=== PATIENT | female | born 1995 | race Caucasian/White ===

== ENCOUNTER 2017-08-29 20:31 | Inpatient (IN) | payer OTHER ==
[~2017-08-29] VITALS: Ht 162.6 cm; Wt 77.3 kg
[2017-08-29] MEDS ORDERED: LACTATED RINGER'S 1000ML 1,000 ML IV PRN (21:18)
[2017-08-29] MEDS ORDERED: PATIENT'S ALLERGY INFO NEEDS ENTERED SCH (21:30)
[2017-08-29] MEDS ORDERED: EpHEDrine SULFATE INJ 50 MG/ML AMP ONE (21:31)
[2017-08-29] MEDS ORDERED: BUPIVACAINE 0.25% 30 ML VIAL ONE (21:31)
[2017-08-29] MEDS ORDERED: FENTANYL 2MCG/ML ROPIV 1.25MG/ML 100ML BAG EPI ONE (21:32)
[2017-08-29] MEDS ORDERED: FENTANYL CITRATE INJ 50 MCG/1 ML 2 ML VIAL ONE (21:32)
[2017-08-29 21:42] VITALS: Ht 162.6 cm; Wt 77.3 kg
[2017-08-29] MEDS ORDERED: PRENTAB26 PO (21:45)
[2017-08-29 21:49] LABS: HEMATOCRIT 37.6 % (37-47); MEAN CELL VOLUME 80.9 fL (80-100); MEAN CORPUSCULAR HEMOGLOBIN 27.7 pg (25-34); MEAN CORPUSCULAR HGB CONC 34.3 g/dl (32-36); MEAN PLATELET VOLUME 11.1 fL (7.4-10.4); PLATELET COUNT 183 K/uL (130-400); RED BLOOD COUNT 4.65 M/uL (4.2-5.4); WHITE BLOOD COUNT 13.66 K/uL (4.8-10.8)
[2017-08-29] MEDS ORDERED: NALOXONE HCL INJ 1 MG in SODIUM CHLORIDE 0.9% 1000ML 1,000 ML IV PRN (22:38)
[2017-08-29] MEDS ORDERED: LACTATED RINGER'S 1000ML 500 ML IV PRN ×2 (22:38→23:04)
[2017-08-29] MEDS ORDERED: ONDANSETRON INJ 2 MG/ML 2 ML VIAL IV PRN (22:45)
[2017-08-29] MEDS ORDERED: NALBUPHINE HCL INJ 10 MG/ML AMP IV PRN (22:45)
[2017-08-29] MEDS ORDERED: FENTANYL 2MCG/ML ROPIV 1.25MG/ML 100ML BAG EPI PRN (22:45)
[2017-08-29] MEDS ORDERED: PROMETHAZINE HCL INJ 6.25 MG in SODIUM CHLORIDE 0.9% 50ML 50 ML IV PRN (22:45)
[2017-08-29] MEDS ORDERED: DiphenhydrAMINE HCL 50 MG/ML VIAL IV PRN (22:45)
[2017-08-29] MEDS ORDERED: NALOXONE HCL INJ 0.4 MG/1 ML VIAL/CARP IV PRN (22:45)
[2017-08-29] MEDS ORDERED: EpHEDrine SULFATE INJ 50 MG/ML AMP IV PRN (22:45)
[2017-08-29] MEDS: LACTATED RINGER'S 1000ML 1,000 ML IV SCH (22:52)
[2017-08-29] MEDS ORDERED: OXYTOCIN 30 UNITS/500ML NSS IV PRN (23:15)
[2017-08-30] VITALS (15 sets, daily range): BP systolic 108–121; BP diastolic 59–70; PULSE 86–100; TEMP 36.9–37.4; O2SAT 91–98
[2017-08-30] MEDS ORDERED: TERBUTALINE SULFATE 1 MG/ML VIAL ONE (00:45)
[2017-08-30] MEDS: LACTATED RINGER'S 1000ML 1,000 ML IV SCH (00:50)
[2017-08-30] MEDS ORDERED: LACTATED RINGER'S 1000ML 1,000 ML IV SCH ×2 (05:36→07:18)
[2017-08-30] MEDS ORDERED: CEFAZOLIN IV 2,000 MG in DEXTROSE 5% 50ML 50 ML IV STA (05:42)
[2017-08-30] MEDS ORDERED: CITRIC ACID/SODIUM CITRATE 15 ML UDC PO ONE (05:45)
[2017-08-30] MEDS ORDERED: KETOROLAC TROMETHAMINE 30 MG/ML VIAL ONE (06:22)
[2017-08-30] MEDS ORDERED: OXYTOCIN INJ 10 UNITS/ML VIAL ONE (06:22)
[2017-08-30] MEDS ORDERED: FENTANYL CITRATE INJ 50 MCG/1 ML 2 ML VIAL ONE (06:22)
[2017-08-30] MEDS ORDERED: MoRPHine SULFATE PF 1 MG/ML 10 ML AMP/VIAL ONE (06:22)
[2017-08-30] MEDS ORDERED: MoRPHine SULFATE PF 1 MG/ML 10 ML AMP/VIAL EPI PRN (07:15)
[2017-08-30] MEDS ORDERED: CONTINUE MEDICATION ONE (07:15)
[2017-08-30] MEDS ORDERED: MEPERIDINE HCL 25 MG/ML CARP IV PRN (07:15)
[2017-08-30] MEDS ORDERED: MoRPHine SULFATE 2 MG/ML CARP IV PRN (07:15)
[2017-08-30] MEDS ORDERED: NO NARCOTICS OR SEDATIVES SCH (07:15)
[2017-08-30] MEDS ORDERED: OXYTOCIN INJ 20 UNITS in D5W AND LACTATED RINGERS 1,000 ML IV SCH (07:18)
--- NOTE | 2017-08-30 07:23 | [facility] Post Operative Brief Note ---
Immediate Operative Summary Operative Date Aug 30, 2017. Pre-Operative Diagnosis Category two strip without improving over time; failure to progress Post-Operative Diagnosis Category two strip without improving over time; failure to progress Procedure(s) Performed Primary Cesearean Section for delivery of a live male child at [address] Branham Branch Chief Surgeon(s) Toyin Garcia rn Estimated Blood Loss 600cc Findings Viable male infant, cephalic presentation Specimens Placenta Cord Blood Cord Gases Anesthesia Epidural Complication(s) None Disposition L&D
[2017-08-30] MEDS ORDERED: SUPERCREAM 0.870 % 15GM JAR EXT PRN (07:30)
[2017-08-30] MEDS ORDERED: LANOLIN OINT EXT PRN ×2 (07:30)
[2017-08-30] MEDS ORDERED: MEASLES, MUMPS & RUBELLA VIRUS VIAL SQ. ONE (07:30)
[2017-08-30] MEDS ORDERED: SENNA 8.6 MG TAB PO PRN (07:30)
[2017-08-30] MEDS ORDERED: HYDROCORTISONE ACETATE 25 MG SUPP PR PRN (07:30)
[2017-08-30] MEDS ORDERED: DIPHTHERIA/TETANUS/PERTUSSIS 0.5 ML SYR/VIAL IM. ONE (07:30)
[2017-08-30] MEDS ORDERED: BENZOCAINE 20% AER SPR 82.5 GM CAN EXT PRN (07:30)
[2017-08-30] MEDS ORDERED: MAGNESIUM HYDROXIDE SUSP 30 ML UDC PO PRN (07:30)
--- NOTE | 2017-08-30 07:35 | Anesthesiology Progress Note ---
Anesthesia Post Op Note Date & Time Aug 30, 2017 at 07:35 Vital Signs Pain Intensity: 0.0 Notes Mental Status: alert / awake / arousable, participated in evaluation Pt Amnestic to Procedure: Yes Nausea / Vomiting: adequately controlled Pain: adequately controlled Airway Patency, RR, SpO2: stable & adequate BP & HR: stable & adequate Hydration State: stable & adequate Neuraxial Anesthesia: was administered, sensory block is resolving Anesthetic Complications: no major complications apparent
--- NOTE | 2017-08-30 07:48 | OPERATIVE REPORT ---
DATE OF OPERATION: 08/30/2017 PREOPERATIVE DIAGNOSIS: The patient is a 22-year-old at 39 weeks and 1 day of gestation, presented in active labor, meconium stained amniotic fluid and failure to progress despite adequate uterine contractions, category 2 strip with deep recurrent variable decelerations. POSTOPERATIVE DIAGNOSIS: Same. PROCEDURE: Primary low transverse with Pfannenstiel skin incision. SURGEON: José Lai MD BUSGIRL: Toyin Garcia, Registered Nurse. ESTIMATED BLOOD LOSS: 600. FLUIDS: 1200 mL lactated ringer. DRAINS: Jaffe catheter drained 700 mL of urine. SPECIMENS: Placenta, cord blood and gases. ANESTHESIA: Epidural, Dr. Pressley. COMPLICATIONS: None. FINDINGS: Baby was a viable male delivered at 6:31 a.m. Apgars 8/9. Weight is 3115 grams, was in cephalic presentation Maternal findings, normal uterus, fallopian tubes and ovaries. DESCRIPTION OF PROCEDURE: The patient was taken to the operating room where epidural anesthesia was found to be adequate. She was placed in dorsal supine position with a leftward tilt. She was prepared and draped in usual sterile fashion. A Pfannenstiel skin incision was made, carried to the underlying layer of fascia with the Bovie. Fascia was incised in the midline and incision extended laterally with the help of Torres scissors. Lower aspect of the fascial incision was grasped with 2 [place] clamps, elevated, underlying rectus muscles were dissected off sharply with Torres scissors and then upper aspect of the fascial incision was then grasped with 2 [place] clamps, elevated, underlying rectus muscles were dissected off sharply with Torres scissors and the rectus muscles were in midline and peritoneum was entered bluntly with fingers. Peritoneal incision was the extended superiorly and inferiorly with good visualization of the bladder. Bladder blade was inserted. The vesicouterine peritoneum was identified, grasped with pickups, entered sharply with Metzenbaum scissors. Vesicouterine peritoneum was created digitally and vesicouterine flap was created digitally and bladder blade was reinserted. Lower uterine segment was incised in transverse fashion. Incision was extended laterally with the help of fingers and the baby's head was brought to the incision and delivered without difficulty. Shoulders were delivered with minimal traction and the baby was handed off to the gunstock spray unit adjuster, Dr. Silveira who was scrubbed in the case. She suctioned the mouth and nose. Cord was clamped x2 and cut. It was a 3-vessel cord. Cord blood and gases were obtained and placenta was delivered manually as intact and complete. Uterus was cleared of all clots and debris. Uterine incision was repaired with 0 Vicryl in a running locked fashion. A second imbricating layer was placed with 0 Vicryl in a running locked fashion and excellent hemostasis was achieved. Then the vesicouterine peritoneum was reapproximated with 3-0 Vicryl in a running fashion. The pelvis was irrigated with warm normal saline and suctioned. Both ovaries and fallopian tubes were checked to be normal and then incision was checked to be hemostatic again. Parietal peritoneum was reapproximated with 3-0 Vicryl in a running locked fashion and the rectus muscles were reapproximated with 3-0 Vicryl in a running fashion. Rectus fascia was reapproximated with 0 Vicryl in a running fashion and subcuticular fat tissue was brought together with 3-0 Vicryl within a running fashion and the skin was closed with 4-0 Monocryl in a subcuticular fashion and the incision was covered with Steri-Strips and pressure dressing. The patient and baby tolerated the procedure well. Sponge, lap and needle counts were correct x3. The patient was given 2 grams of cefazolin before surgery. She was taken to recovery room in stable condition. I attest to the content of the Intraoperative Record and any orders documented therein. Any exceptions are noted below. RAMIN
[2017-08-30] MEDS: OXYTOCIN INJ 20 UNITS in LACTATED RINGER'S 1000ML 1,000 ML IV SCH ×2 (09:16→17:35)
[2017-08-30] MEDS: DOCUSATE SODIUM 100 MG CAP PO SCH ×2 (10:25→19:56)
[2017-08-30] MEDS: PRENATAL VITAMIN TAB PO SCH (10:25)
[2017-08-30] MEDS: FERROUS SULFATE 325 MG TAB PO SCH (10:25)
[2017-08-30] MEDS: SIMETHICONE 80 MG CHEW PO SCH ×4 (12:00→19:56)
[2017-08-30] MEDS ORDERED: NURSING VERBAL MED ORDER ONE (13:15)
[2017-08-30] MEDS: KETOROLAC TROMETHAMINE 30 MG/ML VIAL IV. PRN (17:35)
[2017-08-31] VITALS (9 sets, daily range): BP systolic 118–120; BP diastolic 70–75; PULSE 89–95; TEMP 36.9–37.2; O2SAT 93–98
[2017-08-31] MEDS: OXYTOCIN INJ 20 UNITS in LACTATED RINGER'S 1000ML 1,000 ML IV SCH (01:15)
[2017-08-31] MEDS: KETOROLAC TROMETHAMINE 30 MG/ML VIAL IV. PRN (06:06)
[2017-08-31] MEDS ORDERED: DiphenhydrAMINE HCL 50 MG/ML VIAL IV PRN (06:30)
[2017-08-31] MEDS ORDERED: ONDANSETRON INJ 2 MG/ML 2 ML VIAL IV PRN (06:30)
[2017-08-31] MEDS ORDERED: IBUPROFEN 600 MG TAB PO PRN (06:30)
[2017-08-31] MEDS ORDERED: OXYCODONE/ACETAMINOPHEN 5-325 TAB PO PRN ×2 (06:30)
[2017-08-31] MEDS ORDERED: DC INTRASPINAL MORPHINE SCH (06:30)
[2017-08-31] MEDS ORDERED: MEPERIDINE HCL 50 MG/ML CARP IV PRN ×2 (06:30)
[2017-08-31] MEDS ORDERED: PROMETHAZINE HCL INJ 25 MG in SODIUM CHLORIDE 0.9% 50ML 50 ML IV PRN (06:30)
[2017-08-31] MEDS ORDERED: KETOROLAC TROMETHAMINE 30 MG/ML VIAL IV. PRN (06:30)
[2017-08-31 08:14] LABS: HEMATOCRIT 29.5 % (37-47); MEAN CELL VOLUME 81.5 fL (80-100); MEAN CORPUSCULAR HEMOGLOBIN 26.8 pg (25-34); MEAN CORPUSCULAR HGB CONC 32.9 g/dl (32-36); MEAN PLATELET VOLUME 10.6 fL (7.4-10.4); PLATELET COUNT 160 K/uL (130-400); RED BLOOD COUNT 3.62 M/uL (4.2-5.4); WHITE BLOOD COUNT 13.48 K/uL (4.8-10.8)
[2017-08-31] MEDS: FERROUS SULFATE 325 MG TAB PO SCH (08:17)
[2017-08-31] MEDS: PRENATAL VITAMIN TAB PO SCH (08:17)
[2017-08-31] MEDS: SIMETHICONE 80 MG CHEW PO SCH ×4 (08:17→19:52)
[2017-08-31] MEDS: DOCUSATE SODIUM 100 MG CAP PO SCH ×2 (08:17→19:52)
[2017-08-31 08:47] LABS: BASO % 0.1 %; BASO ABS # 0.02 K/uL (0-0.2); COMPLETE YES; EOS % 0.2 %; IG% 0.2 %; LYMPH % 12.3 %; LYMPH ABS # 1.66 K/uL (1.2-3.4); MONO % 6.8 %; NEUT % 80.4 %
--- NOTE | 2017-08-31 09:30 | Surgery Progress Note ---
Surgery Progress Note Date of Service Aug 31, 2017. Subjective Post OP Day: 2 + feeling well, + ambulating Objective Vital Signs: Date Time Temp Pulse Resp B/P (MAP) Pulse Ox O2 Delivery O2 Flow Rate FiO2 08/31/17 05:00 16 95 08/31/17 04:00 16 97 08/31/17 03:25 37.2 89 16 118/70 (86) 95 Room Air 08/31/17 03:00 16 95 08/31/17 02:00 16 95 08/31/17 01:00 16 93 08/31/17 00:00 16 94 08/30/17 23:10 Room Air 08/30/17 23:10 36.9 94 16 110/59 (76) 94 Room Air 08/30/17 23:00 16 96 08/30/17 22:00 16 97 08/30/17 20:55 37.0 88 18 115/69 (84) 98 Room Air 08/30/17 20:55 Room Air 08/30/17 20:55 18 98 08/30/17 19:05 18 98 08/30/17 18:00 18 96 08/30/17 17:00 18 93 08/30/17 16:00 18 94 08/30/17 15:00 37.1 86 16 121/67 (85) 95 Room Air 08/30/17 15:00 95 Room Air 08/30/17 15:00 16 95 08/30/17 14:00 18 91 08/30/17 13:30 18 93 08/30/17 12:30 18 92 08/30/17 12:30 92 Room Air 08/30/17 12:30 37.2 100 18 108/70 (83) 92 Room Air 08/30/17 11:30 16 92 08/30/17 11:25 37.3 97 16 112/60 (77) 92 Room Air 08/30/17 10:25 16 94 08/30/17 10:25 37.4 97 16 120/65 (83) 94 Room Air 08/30/17 10:25 94 Room Air General Appearance: no apparent distress Abdomen: non tender, non distended, soft, no organomegaly Incision(s): clean, dry, intact Laboratory Results: Results Past 24 Hours Test 08/31/17 06:54 Range/Units White Blood Count 13.48 4.8-10.8 K/uL Red Blood Count 3.62 4.2-5.4 M/uL Hemoglobin 9.7 12.0-16.0 g/dL Hematocrit 29.5 37-47 % Mean Corpuscular Volume 81.5 80-100 fL Mean Corpuscular Hemoglobin 26.8 25-34 pg Mean Corpuscular Hemoglobin Concent 32.9 32-36 g/dl Platelet Count 160 130-400 K/uL Mean Platelet Volume 10.6 7.4-10.4 fL Neutrophils (%) (Auto) 80.4 % Lymphocytes (%) (Auto) 12.3 % Monocytes (%) (Auto) 6.8 % Eosinophils (%) (Auto) 0.2 % Basophils (%) (Auto) 0.1 % Neutrophils # (Auto) 10.82 1.4-6.5 K/uL Lymphocytes # (Auto) 1.66 1.2-3.4 K/uL Monocytes # (Auto) 0.92 0.11-0.59 K/uL Eosinophils # (Auto) 0.03 0-0.5 K/uL Basophils # (Auto) 0.02 0-0.2 K/uL RDW Standard Deviation 45.2 36.4-46.3 fL RDW Coefficient of Variation 15.3 11.5-14.5 % Immature Granulocyte % (Auto) 0.2 % Immature Granulocyte # (Auto) 0.03 0.00-0.02 K/uL Assessment & Plan POD#2 regular diet
[2017-08-31] MEDS ORDERED: BISACODYL 5 MG TABEC PO ONE (22:00)
[2017-09-01 00:20] VITALS: BP 124/82; PULSE 84; TEMP 36.8
[2017-09-01 07:30] VITALS: BP 129/77; PULSE 78; TEMP 37
[2017-09-01] MEDS ORDERED: BISACODYL 10 MG SUPP PR PRN (07:30)
[2017-09-01 07:56] VITALS: BP 129/79; PULSE 78; TEMP 37; O2SAT 96
[2017-09-01 08:13] LABS: HEMATOCRIT 29.4 % (37-47)
[2017-09-01] MEDS: DOCUSATE SODIUM 100 MG CAP PO SCH (08:13)
[2017-09-01] MEDS: FERROUS SULFATE 325 MG TAB PO SCH (08:13)
[2017-09-01] MEDS: SIMETHICONE 80 MG CHEW PO SCH (08:13)
[2017-09-01] MEDS: PRENATAL VITAMIN TAB PO SCH (08:13)
[2017-09-01] MEDS ORDERED: OXYC-57 PO (08:34)
[2017-09-01] MEDS ORDERED: MTR600X PO (08:34)
--- NOTE | 2017-09-01 08:36 | Discharge Instructions ---
Discharge Instructions Date of Service Sep 01, 2017. Admission Reason for Admission: Amniotic Fluid Leaking, Uterine Contractions At Discharge Discharge Diagnosis / Problem: Primary section Discharge Goals Goal(s): Routine recovery after Activity Recommendations Activity Limitations: per Instructions/Follow-up section . Instructions / Follow-Up Instructions / Follow-Up ACTIVITY RECOMMENDATIONS: * Gradual return to full activity over the next 2-3 weeks. * No lifting - nothing heavier than baby over the next 2-3 weeks. * Do not engage in vigorous exercise, sexual activity or sports until cleared by your physician. * Do not drive or operate any motorized equipment until cleared by your physician. * You may shower/bathe daily. BREAST CARE: If you are not breast feeding: * Wear a supportive bra 24 hours a day for one to two weeks. * Avoid stimulating your breasts and nipples as much as possible during the first few weeks after delivery. * When taking a shower, have the warm water hit your back, not breasts. * When your breasts feel full, apply ice packs. Usually three to four times a day helps ease the discomfort. * Take a mild pain medication (Tylenol/Motrin) when you are uncomfortable. If breast feeding: * Use breast milk to lubricate nipples. Lansinoh cream may be used for sore nipples. You do not need to remove cream prior to breast feeding. If using a different brand of cream, check the label for directions regarding removal of cream prior to nursing. * Wear a supportive bra. * If having problems with breasts or breast feeding, call a sr risk management consultant or your health care provider. OVER THE COUNTER MEDICATION: * For discomfort or pain, you may use Acetaminophen (Tylenol), Ibuprofen (Advil ), or Naproxen (Aleve) following the package directions. * For constipation you may use Colace following the package directions. SPECIAL CARE INSTRUCTIONS: When you are discharged from the hospital, it is important for you to follow the instructions listed below: * During the first week at home, you should be able to care for yourself and your baby. In addition, the usual light household activities are encouraged. * Limit your activities to the way you feel. Do not try to clean the house or move furniture. Be sensible. * If you actively engage in sports and have done so up until the time of your delivery, you may resume these activities as soon as you feel able. This may take up to one month or even longer. Use good judgment. * Continue to take your vitamins for at least six weeks after the of your baby. * Your diet need not be limited unless you were on a special diet before your delivery. Breast-feeding mothers need around 2500 calories per day and at least 64-80 ounces of fluid per day (8 to 10 glasses). * You should eat foods from the four major food groups. Crash diets or fad diets are to be avoided. Eating lean meats, fresh fruits and vegetables, low-fat dairy products, high fiber foods and a regular exercise program, will help you get back to your pre- weight without putting your health at risk. * Constipation is sometimes a problem after delivery. Take a mild laxative as needed. If breast feeding, Milk of Magnesia is acceptable to use. You may use a suppository or Fleets enema if no episiotomy. * A daily shower or tub bath is suggested. Be sure to thoroughly and gently dry the perineum. * A bloody vaginal discharge will usually continue until around four weeks post . A small amount of bleeding may continue for as long as six weeks. Vaginal discharge changes from the bright red bleeding after delivery to pink then brownish and finally yellowish-pink before becoming white and disappearing. * Bleeding may increase with activity. Your first period may come in 4-8 weeks. If you are breast feeding, your period may be delayed even longer. * Imbery (sex) can begin whenever both you and your partner feel comfortable and do not have any form of genital infection. It is recommended that you wait at least six weeks for internal and external healing to occur. If you have questions, please talk to your health care practitioner. A condom should be used to prevent infection and . * Foreplay, gentle intercourse and lubrication is very important the first several times to prevent pain. A water-based lubricant such as K-Y jelly or Astroglide may be used. * Tampons and/or Douching should be avoided until after six weeks check-up. * If you have RH negative blood and your baby is RH positive, you will receive RHOGAM by injection prior to discharge. The nurse will give you a card to keep with you that has the date and place that you received RHOGAM after delivery. * During your care, you had a Rubella screen done to check for the presence of rubella antibodies in your blood. If your test was negative, you will receive a Rubella vaccine prior to discharge. This vaccine may cause a fever, soreness at the injection site and flu-like symptoms. If these symptoms persist, notify your health care practitioner. is not advised for three months after a Rubella vaccine. * Verbalizes understanding of car seat law as reviewed with patient nursing. * Car Seat hand-out given and reviewed with patient by nursing. * Shaken baby information reviewed with patient by nursing. Call you doctor if: * Heavy bleeding (saturating several pads an hour) or passing clots the size of your fist. * A fever >101 degrees F (38.3 degrees C) on two occasions four hours apart and /or chills. * Unusual pain in the pelvic or vaginal areas. Pain should improve each day . * Call the doctor for any increased redness, drainage or swelling around the incision and any pain unrelieved by prescribed pain medication. * Any signs or symptoms of phlebitis (possible blood clots forming in the veins ): leg pain, warm, red or swollen area on leg. * "Baby Blues" lasting longer than two weeks. If you have any questions or concerns, call your health care practitioner at . FOLLOW-UP VISIT: * Incision check (staple removal) in 1 week. Please call doctor's office at to set up appointment. * Please call the office at to schedule a 6 week examination. It is important you keep this appointment. * It is important for you to make arrangements for either yearly or twice yearly check-ups thereafter. Current Hospital Diet Patient's current hospital diet: Regular OB Diet Discharge Diet Recommended Diet: Regular OB Diet Procedures Procedures Performed: Primary Cesearean Section for delivery of a live male child at 0631 Pending Studies Studies pending at discharge: no Medical Emergencies . Who to Call and When: Medical Emergencies: If at any time you feel your situation is an emergency, please call 911 immediately. . Non-Emergent Contact Non-Emergency issues call your: Primary Care Provider, Tape Coater . . "Provider Documentation" section prepared by Chuck Wilkins. . VTE Core Measure Inpt VTE Proph given/why not?: Treatment not indicated [place] Drug Monitoring Program Search Results: patient reviewed within database, no issues identified
--- NOTE | 2017-09-01 08:38 | OB/GYN Progress Note ---
[facility] Progress Note Date of Service Sep 01, 2017. Subjective conversation w/ patient, physical exam Ambulation: ambulating normally Voiding: no voiding problems Passing Gas: Yes Diet Tolerance: Regular Diet Lochia: Small Pain: 11/30 Notes: Doing well, no concerns. Pain well controlled. Tolerating regular diet, +flatus , -BM. Ambulating without difficulty. Would like to go home today. Objective Vital Signs Date Time Temp Pulse Resp B/P (MAP) Pulse Ox O2 Delivery O2 Flow Rate FiO2 09/01/17 07:56 37.0 78 18 129/79 (96) 96 Room Air 09/01/17 00:20 Room Air 09/01/17 00:20 36.8 84 18 124/82 (96) 08/31/17 15:30 37.2 95 20 120/75 (90) 98 Room Air 08/31/17 15:30 Room Air Physical Exam General Appearance: WELL-APPEARING Respiratory/Chest: chest non-tender, lungs clear Cardiovascular: regular rate, rhythm Abdomen: normal bowel sounds, soft Fundus: Firm Incision Description: Clean, Dry & Intact Extremities: normal range of motion, non-tender, no calf tenderness Laboratory Results Last 24 Hours Test 09/01/17 07:58 Hemoglobin 9.3 g/dL Hematocrit 29.4 % Assessment and Plan Post-Op Day Number: 2 Continue Routine Care: -D/C home today -F/U in 1 week.
[2017-09-01 12:21] VITALS: BP_DIAS 79; PULSE 78; TEMP 37
== END 2017-09-01 12:35 | disposition home or self-care (01) | DRG 766 ==
LOC: C.LD 20:31 → C.OPB 20:31 → C.LD 21:20 → C.OBG 08-30 10:23
PROVIDERS: ADMIT Obstetrics & Gynecology; ATTEND Obstetrics & Gynecology
PROC: 10D00Z1 Extraction of Products of Conception, Low, Open Approach (ICD-10-PCS; principal; 2017-08-30 05:46)
DX: O62.1 Secondary uterine inertia (principal); O76 Abnormality in fetal heart rate and rhythm complicating labor and delivery; O24.420 Gestational diabetes mellitus in childbirth, diet controlled; Z3A.39 39 weeks gestation of pregnancy; Z37.0 Single live birth

== ENCOUNTER 2019-12-18 05:14 | Inpatient (IN) ==
--- NOTE | 2019-12-05 12:29 | Anesthesiology Consultation ---
Date of Service December 05, 2019 Assessment & Plan (1) Encounter for pre-operative examination: CHECK BSG AM DOS Chart Review Chart Review: Acceptable Risk for Surgery and Patient seen in Pre Admission Testing Teaching & Discussion Instructed NPO after midnight before surgery, except medications with 15 cc of water. Medication instructions provided according to the PAT guidelines. History Surgery Operation Date: 12/18/19 07:30 Proposed Procedures p Section in LD - Logan Rothman MD Height/Weight Height: 5 ft 4 in Weight: 79.1 kg Allergies Allergy/AdvReac Type Severity Reaction Status Date / Time No Known Allergies Allergy Verified 11/28/19 08:29 Medications Home Medications Medication Instructions Recorded Confirmed Last Taken PNV cmb#95-ferrous fumarate-FA 1 tab PO QAM 11/28/19 11/28/19 Unknown [] Past Medical History Medical History Gestational diabetes Diet controlled Exercise / Class Metabolic Activity II 4-5 Yardwork/Stairs/Walk up hill Past Surgical History Surgical History Hx of section Done for nonreassuring FHTs Past Anesthesia History No Hx of Anesthesia Complications History of PONV No Hx of PONV and No Hx of Motion Sickness Social History Smoking Status: Never smoker Do You Dip or Chew Tobacco: No Hx Alcohol Use: No Hx Substance Use: No Review of Systems Pt denies any recent chest pain, shortness of breath, palpitations, cough, fever or URI. Physical Exam Vital Signs BP: 110/73 P: 116 (pt asymptomatic) SPO2: 97% RA T: 98.0 F R: 12 ENMT Mouth: no chipped teeth and no loose teeth Thyromental Distance: > or= 3.5 Finger Breadths (3.5) Mallampati Class: III Neck normal visual inspection; neck extension not limited Respiratory normal respiratory effort Auscultation: lungs clear to auscultation bilaterally Cardiovascular Rate/Rhythm: regular rhythm and + tachycardic Heart Sounds: no murmur Testing Laboratory Results 12/05/19 12:20 12/05/19 12:20 Blood Type A Negative 12/05/19 12:20 Antibody Screen POSITIVE A 12/05/19 12:20
[2019-12-05 12:59] LABS: Basophils # (auto) 0.01 K/uL (0-0.2); Basophils % (auto) 0.1 %; Eosinophils # (auto) 0.17 K/uL (0-0.5); Hematocrit (blood only) 34.8 % (37-47); Hemoglobin 11.3 g/dL (12.0-16.0); Immature Granulocytes # (auto) 0.05 K/uL (0.00-0.02); Immature Granulocytes % (auto) 0.6 %; Lymphocytes # (auto) 1.35 K/uL (1.2-3.4); Lymphocytes % (auto) 15.5 %; Mean Corpuscular Hemoglobin 26.5 pg (25-34); Mean Corpuscular Hgb Conc 32.5 g/dL (32-36); Mean Corpuscular Volume 81.5 fL (80-100); Mean Platelet Volume 10.8 fL (7.4-10.4); Monocytes # (auto) 0.51 K/uL (0.11-0.59); Monocytes % (auto) 5.9 %; Neutrophils % (auto) 75.9 %; Platelet Count 186 K/uL (130-400); RDW Coefficient of Variation 15.2 % (11.5-14.5); RDW Standard Deviation 44.5 fL (36.4-46.3); Red Blood Count 4.27 M/uL (4.2-5.4); White Blood Count 8.69 K/uL (4.8-10.8)
[2019-12-05 13:17] LABS: BUN Creatinine Ratio 17.6 (10-20); Calcium 8.7 mg/dl (8.5-10.1); Creatinine Clr Calc Pharmacy 142.4 ml/min; Est GFR (African American) 146.3; Est GFR (Non-African American) 126.2; Potassium 3.8 mmol/L (3.5-5.1)
[~2019-12-18 05:14] MED LIST: KETOROLAC 30 MG/ML VIAL IV PRN
[2019-12-18] MEDS ORDERED: LACTATED RINGER'S 1,000 ML IV SCH ×2 (05:30→10:45)
[2019-12-18 05:46] LABS: Basophils # (auto) 0.03 K/uL (0-0.2); Basophils % (auto) 0.3 %; Eosinophils # (auto) 0.18 K/uL (0-0.5); Eosinophils % (auto) 1.9 %; Hematocrit (blood only) 38.2 % (37-47); Hemoglobin 12.5 g/dL (12.0-16.0); Immature Granulocytes # (auto) 0.04 K/uL (0.00-0.02); Immature Granulocytes % (auto) 0.4 %; Lymphocytes # (auto) 1.71 K/uL (1.2-3.4); Lymphocytes % (auto) 17.6 %; Mean Corpuscular Hemoglobin 26.6 pg (25-34); Mean Corpuscular Volume 81.3 fL (80-100); Mean Platelet Volume 10.8 fL (7.4-10.4); Monocytes # (auto) 0.71 K/uL (0.11-0.59); Monocytes % (auto) 7.3 %; Neutrophils # (auto) 7.03 K/uL (1.4-6.5); Neutrophils % (auto) 72.5 %; Platelet Count 169 K/uL (130-400); RDW Coefficient of Variation 15.9 % (11.5-14.5); RDW Standard Deviation 46.6 fL (36.4-46.3)
[2019-12-18 05:49] LABS: Mean Corpuscular Hgb Conc 32.7 g/dL (32-36)
[2019-12-18] MEDS ORDERED: CITRIC ACID/SODIUM CITRATE 15 ML UDC PO SCH (06:00)
[2019-12-18] MEDS ORDERED: CEFAZOLIN 2000MG 2,000 MG/15 ML SYR IV SCH (06:00)
[2019-12-18] MEDS ORDERED: OXYTOCIN 10 UNITS/ML VIAL ONE (07:53)
[2019-12-18] MEDS ORDERED: MoRPHine SULFATE PF 1 MG/ML 10 ML AMP/VIAL ONE (07:55)
[2019-12-18] MEDS ORDERED: fentaNYL citrate 100 MCG/2 ML VIAL ONE (07:55)
--- NOTE | 2019-12-18 07:56 | History & Physical Report ---
Date of Service December 18, 2019 Assessment & Plan (1) Term , repeat: Repeat section Present on Admission?: Yes History of Present Illness Primary Care Provider: NO PCP Allergies Allergy/AdvReac Type Severity Reaction Status Date / Time No Known Allergies Allergy Verified 12/18/19 05:39 Home Medications Home Medications Medication Instructions Recorded Confirmed Type PNV cmb#95-ferrous fumarate-FA 1 tab PO QAM 11/28/19 12/18/19 History [] Past Med/Surg History Medical History Gestational diabetes Diet controlled Surgical History Hx of section Done for nonreassuring FHTs, 08/2017 [place] teeth removed age 17 Family History (Updated 12/18/19 @ 04:27 by Maria Dolores Hernández RN) Father Hypertension Social History Preferred Language: Slovak Communication Ability: Effective Watchguard Required: No Beliefs That Will Affect Care: None marital status: Single Current Living Situation: Significant Other Current Living Situation Comment: house with FOB and son Other Information That Helps Us Care for You: No Feels Safe at Home: Yes Safety Concerns: Feels Safe At This Time Smoking Status: Never smoker Do You Dip or Chew Tobacco: No ; Second Hand Exposure: No ; Hx Alcohol Use: No Hx Substance Use: No Review of Systems Review of Systems: All systems reviewed & are unremarkable except as noted in HPI & below Physical Exam Constitutional: WD/WN, vitals as above well developed and comfortable Eyes: PERRL, conjunctivae normal, anicteric sclerae Respiratory: normal respiratory effort, lungs clear to auscultation Cardiovascular: RRR, no murmur, no edema Gastrointestinal (Abdomen): Inspection/Auscultation: abdomen normal to inspection Percussion/Palpation: abdomen soft Neurologic: CN's II-XI intact bilaterally Genitourinary: OB Exam Abdomen: + heart tones and + vertex OB Exam Monitor Tracing: + external FHT monitor used, + external uterine monitor used, + category I and + normal FHT variability Results & Data Vital Signs (Past 12 Hours) Vital Signs Temp Pulse Pulse Resp BP BP 12/18/19 05:40 36.5 C 103 H 103 H 18 114/66 114/66 12/18/19 05:24 36.5 C 103 H 18 114/66
[2019-12-18] MEDS ORDERED: DiphenhydrAMINE HCL 50 MG/ML VIAL IV PRN (10:12)
[2019-12-18] MEDS ORDERED: NALOXONE HCL 0.4 MG/1 ML VIAL/CARP IV PRN (10:12)
[2019-12-18] MEDS ORDERED: NALOXONE HCL 0.08 MG in SYRINGE 1.8 ML IV PRN (10:12)
[2019-12-18] MEDS ORDERED: ONDANSETRON INJ 2 MG/ML 2 ML VIAL IV PRN ×2 (10:12→10:36)
[2019-12-18] MEDS ORDERED: MoRPHine SULFATE PF 1 MG/ML 10 ML AMP/VIAL INT SPINAL ONE (10:12)
[2019-12-18] MEDS ORDERED: ePHEDrine sulfate 50 MG/ML AMP IV PRN (10:12)
[2019-12-18] MEDS ORDERED: NALOXONE HCL 1 MG in SODIUM CHLORIDE 0.9% 1000ML 1,000 ML IV PRN (10:12)
[2019-12-18] MEDS ORDERED: LACTATED RINGER'S 500 ML IV PRN (10:12)
[2019-12-18] MEDS ORDERED: NALBUPHINE HCL INJ 10 MG/ML AMP IV PRN (10:12)
[2019-12-18] MEDS ORDERED: PROMETHAZINE HCL 25 MG in SODIUM CHLORIDE 0.9% 50 ML IV PRN (10:12)
[2019-12-18] MEDS ORDERED: KETOROLAC 30 MG/ML VIAL IV PRN (10:12)
[2019-12-18] MEDS ORDERED: NO NARCOTICS OR SEDATIVES SCH (10:15)
[2019-12-18] MEDS ORDERED: SODIUM CHLORIDE 0.9% 1000ML 1,000 ML IV SCH (10:15)
[2019-12-18] MEDS ORDERED: DC INTRASPINAL MORPHINE SCH (10:15)
[2019-12-18] MEDS ORDERED: PHENYLEPHRINE 100MCG/ML 5ML SYR ONE (10:26)
--- NOTE | 2019-12-18 10:30 | Post Operative Brief Note ---
Immediate Post Op Note v1 Date of Surgery December 18, 2019 Pre & Post Diagnosis Operation Date: 12/18/19 07:30 Pre-Op Diagnosis: Intrauterine at 39 weeks gestation. Desires repeat section. Post-Op Diagnosis: Same I identified the patient and participated in the time-out.: Yes Procedure Operation Date: 12/18/19 07:30 Actual Procedures p Repeat Low Section in LD with of live female child at 0957 - Logan Rothman MD Surgeon Logan Rothman MD Director Clinical Pharmacology Sary MILAN Estimated Blood Loss 400 Findings Consistent with Post-Op Diagnosis Drains Jaffe Catheter
[2019-12-18] MEDS ORDERED: SENNA 8.6 MG TAB PO PRN (10:36)
[2019-12-18] MEDS ORDERED: DIPHTHERIA/TETANUS/PERTUSSIS 0.5 ML SYR/VIAL IM ONE (10:36)
[2019-12-18] MEDS ORDERED: BENZOCAINE 20% AER SPR 82.5 GM CAN EXT PRN (10:36)
[2019-12-18] MEDS ORDERED: HYDROCORTISONE ACETATE 25 MG SUPP PR PRN (10:36)
[2019-12-18] MEDS ORDERED: MAGNESIUM HYDROXIDE SUSP 30 ML UDC PO PRN (10:36)
[2019-12-18] MEDS ORDERED: SUPERCREAM 0.870% 15 GM JAR EXT PRN (10:36)
[2019-12-18] MEDS: SIMETHICONE 80 MG CHEW PO SCH ×3 (13:19→21:06)
--- NOTE | 2019-12-18 13:31 | Anesthesiology Progress Note ---
Date of Service December 18, 2019 Anesthesia Post Procedure Vital Signs Vital Signs: Temp Pulse Pulse Resp BP BP Pulse Ox 12/18/19 13:25 89 96 12/18/19 13:20 80 96 12/18/19 13:10 76 96 12/18/19 13:05 77 97 12/18/19 13:00 80 97 12/18/19 12:55 87 117/74 97 12/18/19 12:50 83 97 12/18/19 12:45 79 114/75 98 12/18/19 12:40 77 99 12/18/19 12:35 73 112/82 98 12/18/19 12:30 71 98 12/18/19 12:25 67 111/74 98 12/18/19 12:20 72 97 12/18/19 12:15 74 114/75 97 12/18/19 12:10 67 18 98 12/18/19 12:05 66 104/70 97 12/18/19 11:40 36.4 C L 18 12/18/19 11:35 18 12/18/19 11:25 18 12/18/19 11:15 18 12/18/19 11:05 18 12/18/19 10:55 16 12/18/19 10:45 16 12/18/19 10:35 36.6 C 18 12/18/19 05:40 36.5 C 103 H 103 H 18 114/66 114/66 12/18/19 05:24 36.5 C 103 H 18 114/66 Transfer of Care Handoff Completed per policy Notes Mental Status: alert / awake / arousable Patient Amnestic to Procedure: Yes Nausea / Vomiting: adequately controlled Pain: adequately controlled Airway Patency, RR, SpO2: stable & adequate BP & HR: stable & adequate Hydration State: stable & adequate Neuraxial Anesthesia: was administered and sensory block is resolving Anesthetic Complications: no major complications apparent
[2019-12-18] MEDS ORDERED: ACETAMINOPHEN 500 MG TAB PO PRN (13:32)
[2019-12-18] MEDS: DOCUSATE SODIUM 100 MG CAP PO SCH (21:06)
[2019-12-19] MEDS ORDERED: MEPERIDINE HCL 50 MG/ML CARP IV PRN (04:12)
[2019-12-19] MEDS ORDERED: PROMETHAZINE HCL 25 MG in SODIUM CHLORIDE 0.9% 50 ML IV PRN (04:12)
[2019-12-19] MEDS ORDERED: DiphenhydrAMINE HCL 50 MG/ML VIAL IV PRN (04:12)
[2019-12-19] MEDS ORDERED: OXYCODONE/ACETAMINOPHEN 5mg/325mg TAB PO PRN (04:12)
[2019-12-19 06:24] LABS: Basophils # (auto) 0.01 K/uL (0-0.2); Basophils % (auto) 0.1 %; Eosinophils # (auto) 0.05 K/uL (0-0.5); Eosinophils % (auto) 0.5 %; Hematocrit (blood only) 35.1 % (37-47); Hemoglobin 11.2 g/dL (12.0-16.0); Immature Granulocytes # (auto) 0.03 K/uL (0.00-0.02); Immature Granulocytes % (auto) 0.3 %; Lymphocytes # (auto) 1.36 K/uL (1.2-3.4); Lymphocytes % (auto) 13.1 %; Mean Corpuscular Hgb Conc 31.9 g/dL (32-36); Mean Corpuscular Volume 81.4 fL (80-100); Mean Platelet Volume 10.5 fL (7.4-10.4); Monocytes # (auto) 0.66 K/uL (0.11-0.59); Monocytes % (auto) 6.4 %; Neutrophils # (auto) 8.27 K/uL (1.4-6.5); Neutrophils % (auto) 79.6 %; Platelet Count 171 K/uL (130-400); RDW Coefficient of Variation 16.1 % (11.5-14.5); RDW Standard Deviation 47.6 fL (36.4-46.3); Red Blood Count 4.31 M/uL (4.2-5.4); White Blood Count 10.38 K/uL (4.8-10.8)
--- NOTE | 2019-12-19 06:58 | Operative Report ---
DATE OF OPERATION: 12/18/2019 PREOPERATIVE DIAGNOSIS: Term elective repeat section. POSTOPERATIVE DIAGNOSIS: Term elective repeat section. PROCEDURE: Repeat section, low segment transverse. SURGEON: Logan Rothman MD. CARPET TILE LAYER: BJORN Hernandez. ANESTHESIA: Spinal. CLINICAL HISTORY: The patient is a 24-year-old female, para 1-0-0-1 at 39 weeks presenting for an elective repeat section. She has been consented. A time-out was called prior to the start of the procedure and antibiotics were given. DESCRIPTION OF PROCEDURE: Under satisfactory spinal anesthesia, the patient was prepped and draped in usual sterile fashion. A low Pfannenstiel incision through a prior scar was then made entering into the abdominal layers in successive layers without difficulty. Upon entering into the abdominal cavity, Metzenbaum scissors were then used to develop a bladder flap. A low segment transverse incision over the lower uterine segment was made. The incision was nicked. Amniotic fluid was noted to be clear. The incision was then widened in the AP diameter. Next, with the aid of fundal pressure, the infant was then delivered from the fundus with the vertex successfully delivered. The cord was doubly clamped and cut after a 1-minute cord delay resulting in a live female, Apgars 9 and 10. weight 7 pounds 1 ounce. The was then suctioned and submitted to Pediatrics for warming and care. The cord blood was obtained. Placenta was then delivered spontaneously and intact. Uterus was then exteriorized. Ring forceps were then placed on both angles and inferior margin. Another ring used to dilate the cervix. The uterus was closed in double layer closure starting with a 0 Vicryl suture in a continuous interlocking fashion followed by an imbricating layer of 0 Vicryl suture. Tubes and ovaries bilaterally were found to be within normal limits. The contents of the pelvic cavity were then irrigated. The initial sponge, needle and instrument count were found to be correct. Uterus was then placed back into the normal anatomical position. The fascia was then reapproximated with 0 Vicryl suture in a continuous fashion from both ends. Subcuticular space was irrigated. Bleeders were then cauterized. The subcuticular layer was then closed with 3-0 plain suture and the skin was then closed with 4-0 Monocryl suture. Steri-Strips were then applied. Clear urine was noted from the Jaffe. Estimated blood loss was 400 mL The final sponge, needle and instrument count were found to be correct. The patient was then taken to recovery room in stable condition. I attest to the content of the Intraoperative Record and any orders documented therein. Any exception s are noted below.
--- NOTE | 2019-12-19 08:05 | Obstetrical Progress Note ---
Date of Service December 19, 2019 Physical Exam Physical Exam: abdomen soft and non tender passing flatus bandage removed incision is clean and dry no calf tenderness vaginal bleeding is scant hgb 11.2 Results & Data Vital Signs (Past 12 Hours) Vital Signs Temp Pulse Resp BP Pulse Ox 12/19/19 08:00 36.9 C 101 H 20 92/54 L 94 12/19/19 03:30 37.0 C 91 H 16 105/62 91 12/19/19 02:34 17 92 12/19/19 01:35 18 95 12/18/19 23:50 36.8 C 92 H 18 98/59 L 94 12/18/19 23:40 18 94 12/18/19 22:40 18 94 12/18/19 21:45 18 96 12/18/19 20:50 18 95
[2019-12-19] MEDS: SIMETHICONE 80 MG CHEW PO SCH ×4 (08:08→20:19)
[2019-12-19] MEDS: FERROUS SULFATE 325 MG TAB PO SCH (08:09)
[2019-12-19] MEDS: DOCUSATE SODIUM 100 MG CAP PO SCH ×2 (08:09→20:19)
[2019-12-19] MEDS: PRENATAL VITAMIN 1 TAB PO SCH (08:09)
[2019-12-19] MEDS ORDERED: NON-FORMULARY MEDICATION (Pnv Cmb#95-Ferrous Fumarate-Fa [Prenatal] 1 TAB) PO SCH (09:00)
[2019-12-19] MEDS ORDERED: SODIUM CHLORIDE 0.65% NA SOLN 45 ML (OCEAN) STA (12:28)
--- NOTE | 2019-12-19 13:39 | Anesthesiology Progress Note ---
Date of Service December 19, 2019 Anesthesia Post Procedure Vital Signs Vital Signs: Temp Pulse Pulse Resp BP BP Pulse Ox 12/19/19 08:00 36.9 C 101 H 20 92/54 L 94 12/19/19 03:30 37.0 C 91 H 16 105/62 91 12/19/19 02:34 17 92 12/19/19 01:35 18 95 12/18/19 23:50 36.8 C 92 H 18 98/59 L 94 12/18/19 23:40 18 94 12/18/19 22:40 18 94 12/18/19 21:45 18 96 12/18/19 20:50 18 95 12/18/19 19:50 36.8 C 88 20 104/64 95 12/18/19 19:10 20 97 12/18/19 18:21 20 96 12/18/19 17:22 16 96 12/18/19 16:36 20 95 12/18/19 15:43 20 99 12/18/19 15:39 36.6 C 83 20 106/70 99 12/18/19 14:30 36.7 C 89 18 101/60 100 12/18/19 13:52 85 107/70 12/18/19 13:50 81 96 12/18/19 13:45 83 95 12/18/19 13:40 82 97 Pain Intensity Abdomen: Pain Intensity: 0 Transfer of Care Handoff Completed per policy Notes Mental Status: alert / awake / arousable Patient Amnestic to Procedure: Yes Nausea / Vomiting: adequately controlled Pain: adequately controlled Airway Patency, RR, SpO2: stable & adequate BP & HR: stable & adequate Hydration State: stable & adequate Neuraxial Anesthesia: was administered and sensory block is resolving Anesthetic Complications: no major complications apparent and Pt Satisfied with anesthetic care
[2019-12-19] MEDS: IBUPROFEN 600 MG TAB PO PRN ×2 (16:49→20:19)
[2019-12-19] MEDS ORDERED: bisacodyL 5 MG TABEC PO SCH (20:00)
[2019-12-20 06:15] LABS: Hematocrit (blood only) 36.2 % (37-47); Hemoglobin 11.1 g/dL (12.0-16.0)
[2019-12-20] MEDS: FERROUS SULFATE 325 MG TAB PO SCH (08:11)
[2019-12-20] MEDS: SIMETHICONE 80 MG CHEW PO SCH (08:11)
[2019-12-20] MEDS: PRENATAL VITAMIN 1 TAB PO SCH (08:11)
[2019-12-20] MEDS: DOCUSATE SODIUM 100 MG CAP PO SCH (08:11)
--- NOTE | 2019-12-20 08:33 | Surgery Progress Note ---
Date of Service December 20, 2019 Subjective POD#1 doing well Physical Exam Constitutional: WD/WN, vitals as above comfortable abdomen soft non- tender incision c/d/i neg edema neg Amilcar's will increase diet activity Results & Data Vital Signs (Past 12 Hours) Vital Signs Temp Pulse Resp BP Pulse Ox 12/20/19 01:00 36.8 C 75 14 109/72 96 Laboratory Results Laboratory Results - last 72 hr 12/18/19 12/18/19 12/19/19 05:27 05:33 05:53 WBC 9.70 10.38 RBC 4.70 4.31 Hgb 12.5 11.2 L Hct 38.2 35.1 L MCV 81.3 81.4 MCH 26.6 26.0 MCHC 32.7 31.9 L RDW Std Deviation 46.6 H 47.6 H RDW Coeff of Melissa 15.9 H 16.1 H Plt Count 169 171 MPV 10.8 H 10.5 H Immature Gran % (Auto) 0.4 0.3 Neut % (Auto) 72.5 79.6 Lymph % (Auto) 17.6 13.1 Wilkin % (Auto) 7.3 6.4 Eos % (Auto) 1.9 0.5 Baso % (Auto) 0.3 0.1 Immature Gran # (Auto) 0.04 H 0.03 H Neut # (Auto) 7.03 H 8.27 H Lymph # (Auto) 1.71 1.36 Wilkin # (Auto) 0.71 H 0.66 H Eos # (Auto) 0.18 0.05 Baso # (Auto) 0.03 0.01 Blood Type A Negative Antibody Screen NEGATIVE 12/20/19 05:36 WBC RBC Hgb 11.1 L Hct 36.2 L MCV MCH MCHC RDW Std Deviation RDW Coeff of Melissa Plt Count MPV Immature Gran % (Auto) Neut % (Auto) Lymph % (Auto) Wilkin % (Auto) Eos % (Auto) Baso % (Auto) Immature Gran # (Auto) Neut # (Auto) Lymph # (Auto) Wilkin # (Auto) Eos # (Auto) Baso # (Auto) Blood Type Antibody Screen
[2019-12-20] MEDS ORDERED: bisacodyL 10 MG SUPP PR PRN (10:31)
== END 2019-12-20 11:05 | disposition home or self-care (01) | DRG 788 ==
LOC: 4S1 05:14 → EDSTATUS 07:30 → 4S2 14:14